=== PATIENT | female | born 1965 | race Asian ===

== ENCOUNTER → 2016-12-16 | Outpatient (CLI) | payer OTHER ==
[~2016-12-16] MED LIST: CIPR0.3S; CLAR2.5T; EPIP0.3I2; IBUP600T26; KETO10TAB PO; LEVO500T32; PHEN105C; REGL10TA6 PO; TOPI1TAB31; ZOMI5TAB4 PO
--- NOTE | 2016-12-16 19:38 | REP ---
MRI left shoulder without contrast: History: Chronic pain question tear. Limited range of motion. Technique: Axial, oblique coronal, and oblique sagittal imaging planes utilized for T1 and T2-weighted scans obtained with and without fat saturation. MRI findings: Glenohumeral and acromioclavicular joints are normally aligned. There is osteoarthritic hypertrophy at the acromioclavicular joint with some fluid and minimal marrow edema. There is inferior hypertrophy at the AC joint and at the inferolateral aspect of the acromion process. This indents the musculotendinous junction of the supraspinatus. There is increased signal intensity and swelling on oblique coronal T1-weighted scans along the distal 2 cm of the supraspinatus tendon consistent with tendonitis tendinosis change. No focal T2-weighted cuff lesion is appreciated. No glenohumeral joint effusion is seen. There is some glenoid chondromalacia mild in degree. No labral tear is appreciated. There is tendonitis tendinosis in the distal subscapularis tendon as well. The biceps and infraspinatus tendons appear intact. Impression: 1. Moderate distal supraspinatus and subscapularis tendinosis. No focal cuff tear seen. 2. AC joint osteoarthritis. 3. Inferolateral acromion process spurring. 4. Mild chondromalacia in the glenoid articular cartilage centrally. Signed by Carlton Raymundo MD 12/17/2016 07:52 A
== END ==
LOC: M RAD 12:35
PROVIDERS: ATTEND Family Medicine
DX: M65.812 Other synovitis and tenosynovitis, left shoulder (principal); M19.012 Primary osteoarthritis, left shoulder; M75.92 Shoulder lesion, unspecified, left shoulder; M94.212 Chondromalacia, left shoulder

== ENCOUNTER 2016-12-17 18:25 | Emergency (ER) | payer OTHER ==
[~2016-12-17] VITALS: Ht 160 cm; Wt 65.8 kg
[2016-12-17] MEDS ORDERED: TOPI1TAB31 (18:36)
[2016-12-17] MEDS ORDERED: IBUP600T26 (18:36)
[2016-12-17] MEDS ORDERED: CLAR2.5T (18:36)
[2016-12-17] MEDS ORDERED: LEVO500T32 (18:36)
[2016-12-17] MEDS ORDERED: PHEN105C (18:36)
[2016-12-17] MEDS ORDERED: CIPR0.3S (18:36)
[2016-12-17] MEDS ORDERED: EPIP0.3I2 (18:36)
[2016-12-17] MEDS ORDERED: ZOMI5TAB4 PO (18:36)
[2016-12-17] MEDS ORDERED: diphenhydrAMINE INJ 50MG/ML VIAL (J1200) IV STA (21:27)
[2016-12-17] MEDS ORDERED: METOCLOPRAMIDE INJ 10MG/2ML VIAL (J2765) IV ONE (21:30)
[2016-12-17] MEDS ORDERED: KETOROLAC 30 MG/ML VIAL (J1885) IV ONE (21:30)
[2016-12-17 21:53] LABS: BASO # 0.1 K/mm3 (0.0-0.2); BASO % 1.3 % (0.0-1.0); EOS # 0.3 K/mm3 (0.0-0.50); EOS % 4.6 % (0.0-3.0); LARGE UNSTAINED CELL # 0.2 K/mm3 (0.0-0.4); LYMPH # 2.8 K/mm3 (1.5-4.5); LYMPH % 43.2 % (24.0-44.0); MEAN CORPUSCULAR HEMOGLOBIN 30.4 pg (27.0-33.0); MEAN CORPUSCULAR VOLUME 95.1 fl (80.0-96.0); MONO # 0.4 K/mm3 (0.0-0.8); MONO % 5.8 % (0.0-5.0); NEUTROPHILS # 2.6 K/mm3 (1.8-7.7); NEUTROPHILS % 42.1 % (36.0-66.0); PLATELET COUNT, AUTOMATED 330 k/mm3 (150-450); RED CELL DISTRIBUTION WIDTH 12.1 % (11.5-14.5); WHITE BLOOD COUNT 6.1 K/mm3 (4.0-10.0)
[2016-12-17 22:10] LABS: ALBUMIN 4.2 GM/DL (3.2-5.2); ALBUMIN/GLOBULIN RATIO 0.98 (1.00-1.93); ALKALINE PHOSPHATASE 102 U/L (45-117); ALT/SGPT 98 U/L (12-78); ANION GAP 5 MEQ/L (8-16); AST/SGOT 72 U/L (15-37); BILIRUBIN,TOTAL 0.6 MG/DL (0.2-1.0); BLOOD UREA NITROGEN 13 MG/DL (7-18); CALCIUM LEVEL 9.5 MG/DL (8.5-10.1); CARBON DIOXIDE LEVEL 31 MEQ/L (21-32); CHLORIDE LEVEL 103 MEQ/L (98-107); CREATININE FOR GFR 0.87 MG/DL (0.55-1.02); GLOMERULAR FILTRATION RATE > 60.0 (>51); GLUCOSE, FASTING 90 MG/DL (70-105); POTASSIUM SERUM 3.9 MEQ/L (3.5-5.1); SODIUM LEVEL 139 MEQ/L (136-145); TOTAL PROTEIN 8.5 GM/DL (6.4-8.2)
[2016-12-17] MEDS ORDERED: ISOVUE-370 76% 100ML VIAL (Q9967) As Ordered ONE (22:13)
[2016-12-17 22:20] LABS: ERYTHROCYTE SEDIMENTATION RATE 12 mm/hr (0-30)
--- NOTE | 2016-12-17 22:40 | REPUSA ---
CT of the Sinuses and facial bones Clinical History: sinus abscess. Technique: Multiple axial CT images were obtained through the facial bones and paranasal sinuses befo re and after administration of nonionic intravenous contrast. Coronal and sagittal reconstructions we re also obtained. Findings: The visualized paranasal sinuses are clear. The osteomeatal complexes are patent bilaterall y. The nasal septum is midline. The visualized mastoid air cells are clear. The osseous structures do not demonstrate any acute abnormalities. The superficial soft tissues are within normal limits. No e nhancing masses are appreciated. The vascular structures demonstrate normal caliber and contour. Impression: Unremarkable CT examination of the facial bones and paranasal sinuses.
[2016-12-17] MEDS ORDERED: KETO10TAB PO (22:54)
[2016-12-17] MEDS ORDERED: REGL10TA6 PO (22:54)
[2016-12-17 23:37] VITALS: BP 124/77
== END 2016-12-17 23:39 | disposition home or self-care (01) ==
LOC: M ED 19:31
DX: G43.909 Migraine, unspecified, not intractable, without status migrainosus (principal); J32.9 Chronic sinusitis, unspecified; Z79.899 Other long term (current) drug therapy; Z88.0 Allergy status to penicillin; Z88.2 Allergy status to sulfonamides; Z88.8 Allergy status to other drugs, medicaments and biological substances
CPT/HCPCS: 70487; 80053; 85025; 85652; 86140; 96374; 96375; 99282; J1200; J1885; J2765; Q9967

== ENCOUNTER → 2019-03-29 | Outpatient (CLI) | payer OTHER ==
[~2019-03-29] MED LIST changes: +IBUP-1022; -IBUP600T26; +LEVO500T3; -LEVO500T32; -PHEN105C; +PHEN105C32; +TOPI100T9; -TOPI1TAB31; +ZOMI5TAB12 PO; -ZOMI5TAB4 PO
--- NOTE | 2019-03-29 10:18 | REP ---
Right hand four views : There is no fracture or dislocation. Mineralization and joint spaces are normal. There are no calcifications or foreign bodies. Impression: Negative right hand . Electronically Signed by Nilton Mack MD 03/29/2019 10:10 A
== END ==
LOC: M RAD 09:27
PROVIDERS: ATTEND Family Medicine
DX: M79.641 Pain in right hand (principal)